=== PATIENT | male | born 1995 | race African-American/Black ===

== ENCOUNTER 2017-07-01 | Emergency (ER) | payer OTHER ==
--- NOTE | 2017-07-01 20:56 | ER Document Report ---
ED General - General Chief Complaint: Laceration Stated Complaint: LEFT THUMB LACERATION Time Seen by Provider: 07/01/17 20:46 TRAVEL OUTSIDE OF THE [place] IN LAST 30 DAYS: No - HPI Notes: 22-year-old male [id number] presents with left thumb laceration. Patient was using a clean pocketknife and he actually slipped and cut the pad of his thumb. He sustained a 1 cm laceration to the medial volar aspect. Bleeding was controlled at home. Minimal blood loss. Burning sharp pain, nonradiating, sudden onset. Tetanus up-to-date. No other modifying factors, no other associated symptoms, no other provocative or palliative factors. Past Medical History - Social History Smoking Status: Never Smoker Family History: Reviewed & Not Pertinent Patient has suicidal ideation: No Patient has homicidal ideation: No - Past Medical History Cardiac Medical History: Reports: None Renal/ Medical History: Denies: Hx Peritoneal Dialysis Review of Systems - Review of Systems Notes: Review of systems as in history of present illness, otherwise no significant headache, chest pain, abdominal pain. Physical Exam - Vital signs Vitals: Temp Pulse Resp BP Pulse Ox 98.7 F 70 18 153/87 H 96 07/01/17 20:19 07/01/17 20:19 07/01/17 20:19 07/01/17 20:19 07/01/17 20:19 - Notes Notes: General: Well devloped, no acute distress. HEENT: Normocephalic, atraumatic. Pupils equal round reactive to light. Mucosa moist. No JVD. Chest: No trauma, normal excursion. Respiratory: Good air exchange, normal excursion. Cardiac: Regular rhythm Abdomen: Soft, benign. Nondistended. Back: No asymmetry or gross abnormality. Motor: Grossly normal power and tone. Neurologic: Alert, nonfocal. Vascular: Well perfused Skin: No petechiae or purpura Extremities: 1 cm slightly gaping laceration noted to the volar medial thumb, curvilinear nature Course - Re-evaluation Re-evalutation: Well-appearing male with laceration, repaired as described below. No complications. Procedure note: Anesthesia was not required. After irrigation and cleansing, wound is explored, I am able to visualize the depth of the wound, no evidence of foreign body, tendon, nerve or vascular injury. Wound is then closed using multiple layers of tissue adhesive, there is good tissue approximation cosmesis , no complications. There is a total of 1 cm closure - Vital Signs Vital signs: Temp Pulse Resp BP Pulse Ox 98.7 F 70 18 153/87 H 96 07/01/17 20:19 07/01/17 20:19 07/01/17 20:19 07/01/17 20:19 07/01/17 20:19 Discharge - Discharge Clinical Impression: Thumb laceration Qualifiers: Encounter type: initial encounter Damage to nail status: without damage Foreign body presence: without foreign body Laterality: left Qualified Code(s): S61.012A - Laceration without foreign body of left thumb without damage to nail , initial encounter Condition: Good Disposition: HOME, SELF-CARE Instructions: Laceration Care ([facility])
== END 2017-07-01 21:03 | disposition home or self-care (01) ==
PROC: 0HQGXZZ Repair Left Hand Skin, External Approach (ICD-10-PCS; principal; 2017-07-01)
CPT/HCPCS: 99282

== ENCOUNTER 2018-09-09 15:17 | Emergency (ER) | payer OTHER ==
[2018-09-09 15:36] VITALS: BP 141/80
[2018-09-09] MEDS ORDERED: PENICILLIN G BENZATHINE 1.2 MILLION UNIT/2 ML DISP.SYRIN IM ONE (16:04)
[2018-09-09] MEDS ORDERED: LIDOCAINE 1% INJ-PF (10 MG/ML) 30 ML SDV NEB ONE (16:04)
[2018-09-09] MEDS ORDERED: CEFTRIAXONE INJ 250 MG VIAL IM ONE (16:04)
[2018-09-09] MEDS ORDERED: AZITHROMYCIN 250 MG TABLET PO ONE (16:04)
--- NOTE | 2018-09-09 16:07 | ER Document Report ---
HPI - HPI Time Seen by Provider: 09/09/18 16:02 Pain Level: Denies Notes: Patient is a 23-year-old male with no significant past medical history aside from psoriasis who presents for testing and treatment for STD exposure to chlamydia, gonorrhea, trichomonas. Patient states that he has had a rash to his palms and soles for the past 2 weeks that do not hurt or itch. He is eating and drinking without difficulty. He is urinating normally without noted discharge and having normal bowel movements. Denies any headache, fever, URI, sore throat, chest pain, palpitations, syncope, cough, shortness of breath, wheeze, dyspnea, abdominal pain, nausea/vomiting/diarrhea, urinary retention, dysuria, hematuria. - ROS Systems Reviewed and Negative: Yes All other systems reviewed and negative - DERM Skin Color: Normal Past Medical History - Social History Smoking Status: Current Every Day Smoker Frequency of alcohol use: None Drug Abuse: None Family History: Reviewed & Not Pertinent Patient has suicidal ideation: No Patient has homicidal ideation: No Renal/ Medical History: Denies: Hx Peritoneal Dialysis Vertical Provider Document - CONSTITUTIONAL Agree With Documented VS: Yes Notes: PHYSICAL EXAMINATION: GENERAL: Well-appearing, well-nourished and in no acute distress. HEAD: Atraumatic, normocephalic. EYES: Pupils equal round and reactive to light, extraocular movements intact, sclera anicteric, conjunctiva are normal. ENT: Nares patent and without discharge. oropharynx clear without exudates. No tonsilar hypertrophy or erythema. Moist mucous membranes. No sinus tenderness. No oral mucosa lesion/rash. NECK: Normal range of motion, supple without lymphadenopathy LUNGS: Breath sounds clear to auscultation bilaterally and equal. No wheezes rales or rhonchi. HEART: Regular rate and rhythm without murmurs, rubs, gallops. ABDOMEN: Soft, nontender, nondistended abdomen. No guarding, no rebound. No masses appreciated. Normal bowel sounds present. No CVA tenderness bilaterally. : + circumcised. No urethral discharge, lymphadenopathy, or hernia noted. Psoriasis rash noted without evidence of pustules, cankers, or other ulcerations. No significant erythema or swelling to the genitals. No testicular tenderness. Musculoskeletal: FROM to passive/active. Strength 5+/5. Extremities: No cyanosis, clubbing, or edema b/l. Peripheral pulses 2+. Capillary refill less than 3 seconds. NEUROLOGICAL: Cranial nerves grossly intact. Normal speech, normal gait. Normal sensory, motor exams PSYCH: Normal mood, normal affect. SKIN: There is a maculopapular dry, rough rash to the palms and soles bilaterally. - INFECTION CONTROL TRAVEL OUTSIDE OF THE [place] IN LAST 30 DAYS: No Course - Re-evaluation Re-evalutation: 09/09/18 Patient is an afebrile, well-hydrated, 23-year-old male who presents with a rash to his palms and soles and exposure to STDs. The rash could be related with his psoriasis, but does resemble a syphilis type rash. Vitals are acceptable without significant tachycardia, tachypnea, or hypoxia. PE is otherwise unremarkable. Patient given Zithromax, Rocephin, and penicillin. RPR, chlamydia/gonorrhea are pending. Urinalysis otherwise unremarkable. No further work-up warranted. Patient's abdomen is soft nontender. He is nontoxic- appearing is able to tolerate p.o. without difficulty. Low suspicion for any necrotizing fasciitis, SJS, SSS, drug reaction, sepsis, meningitis, Lyme disease, [place] spotted fever, testicular torsion, or other systemic emergent condition at this time. Patient aware that condition can change from initial presentation and he needs to monitor symptoms closely and seek medical attention with any acute changes. Recheck with your PCM in 3-5 days. Go to the health department this week for further evaluation. Return to the ED with any other worsening/concerning symptoms as reviewed. Patient is in agreement. - Vital Signs Vital signs: Temp Pulse Resp BP Pulse Ox 98.5 F 85 16 141/80 H 100 09/09/18 15:31 09/09/18 15:31 09/09/18 15:31 09/09/18 15:31 09/09/18 15:31 Discharge - Discharge Clinical Impression: Exposure to STD Condition: Stable Disposition: HOME, SELF-CARE Instructions: Metronidazole ([facility]) Additional Instructions: Maintain fluid intake Proper hygienic technique Keep the skin clean Safe sexual practices with condoms everytime Tylenol/ibuprofen as needed Check in with the health department this week for further testing as you may need continued syphilis testing Your chlamydia/gonorrhea tests are pending and you will be notified if positive results; you may call in 1 day for the results as well F/u with your PCM in 3-5 days for a recheck Return to the ED with any development of OH/fever, trouble with vision, eye redness, worsening pain, urethral discharge, urinary retention, blood in the urine, flank pain, abdominal pain, n/v, Chest Pain, shortness of breath, joint pains, trouble breathing, or any other worsening/concerning symptoms as needed otherwise. Prescriptions: Metronidazole [Flagyl] 500 mg PO BID #14 tablet Forms: Elevated Blood Pressure, Smoking Cessation Education [facility] - Follow up in 3-5 days
[2018-09-09 16:48] LABS: APPEARANCE,URINE CLEAR; BILIRUBIN,URINE NEGATIVE (NEGATIVE); COLOR,URINE YELLOW; GLUCOSE, URINE NEGATIVE (NEGATIVE); KETONES,URINE NEGATIVE (NEGATIVE); LEUKOCYTE ESTERASE,URINE NEGATIVE (NEGATIVE); NITRITE,URINE NEGATIVE (NEGATIVE); PROTEIN,URINE NEGATIVE (NEGATIVE)
[2018-09-09 18:20] LABS: CHLAM PCR NOT DETECTED (NOT DETECT)
== END 2018-09-09 17:45 | disposition home or self-care (01) ==
LOC: ER 15:17
DX: Z20.2 Contact with and (suspected) exposure to infections with a predominantly sexual mode of transmission (principal); R21 Rash and other nonspecific skin eruption; F17.200 Nicotine dependence, unspecified, uncomplicated
CPT/HCPCS: 99283; 96372; 36415; 87086; 86592; 81001; 87491; 87591; J3490; J0561; J0696

== ENCOUNTER 2018-09-09 23:42 | Emergency (ER) | payer OTHER ==
--- NOTE | 2018-09-10 01:20 | RADIOLOGY REPORT (SQ) ---
EXAM DESCRIPTION: XR FOOT 3 OR MORE VIEWS COMPLETED DATE/TME: 09/09/2018 23:44 CLINICAL HISTORY: 23 years, Male, pain COMPARISON: None. FINDINGS: 3 views of the right foot. No acute fracture or dislocation. Normal osseous mineralization. No radiopaque foreign bodies. IMPRESSION: No acute fracture or dislocation. copyright 2010 [employer]- All Rights Reserved
[2018-09-10 01:44] VITALS: BP 133/82
--- NOTE | 2018-09-10 01:45 | ER Document Report ---
HPI - HPI Patient complains to provider of: rash Time Seen by Provider: 09/10/18 01:38 Pain Level: 2 Context: RME note from earlier visit today: Patient is a 23-year-old male with no significant past medical history aside from psoriasis who presents for testing and treatment for STD exposure to chlamydia, gonorrhea, trichomonas. Patient states that he has had a rash to his palms and soles for the past 2 weeks that do not hurt or itch. He is eating and drinking without difficulty. He is urinating normally without noted discharge and having normal bowel movements. Denies any headache, fever, URI, sore throat, chest pain, palpitations, syncope, cough, shortness of breath, wheeze, dyspnea, abdominal pain, nausea/vomiting/diarrhea, urinary retention, dysuria, hematuria. MY HPI: Pt. returns to the ED because "one of the lesions on my right foot hurts." Patient states he was itching his right bottom foot when part of his skin "peeled off." Patient states that hurts which is why he presents to the emergency room. Patient is denying any bleeding or any other injuries. Past Medical History - Social History Smoking Status: Never Smoker Chew tobacco use (# tins/day): No Frequency of alcohol use: None Drug Abuse: None Family History: Reviewed & Not Pertinent Patient has suicidal ideation: No Patient has homicidal ideation: No Renal/ Medical History: Denies: Hx Peritoneal Dialysis Vertical Provider Document - CONSTITUTIONAL Agree With Documented VS: Yes Notes: GENERAL: Alert, interacts well. No acute distress. HEAD: Normocephalic, atraumatic. EYES: Pupils equal, round, and reactive to light. Extraocular movements intact. ENT: Oral mucosa moist, tongue midline. NECK: Full range of motion. Supple. Trachea midline. LUNGS: Clear to auscultation bilaterally, no wheezes, rales, or rhonchi. No respiratory distress. HEART: Regular rate and rhythm. No murmur ABDOMEN: Soft, non-tender. Non-distended. Bowel sounds present in all 4 quadrants. EXTREMITIES: Moves all 4 extremities spontaneously. No edema, normal radial and dorsalis pedis pulses bilaterally. No cyanosis. BACK: no cervical, thoracic, lumbar midline tenderness. No saddle anesthesia, normal distal neurovascular exam. NEUROLOGICAL: Alert and oriented x3. Normal speech. cranial nerves II through XII grossly intact. PSYCH: Normal affect, normal mood. SKIN: Warm, dry, normal turgor. maculopapular dry, rough rash to the palms and soles bilaterally. - INFECTION CONTROL TRAVEL OUTSIDE OF THE [place] IN LAST 30 DAYS: No Course - Re-evaluation Re-evalutation: Foot XR was ordered by knit goods mender prior to my examination of the Pt. 09/10/18 01:44 Patient is an afebrile, well-hydrated, 23-year-old male who presents with a rash to his palms and soles and exposure to STDs. The rash could be related with his psoriasis, but does resemble a syphilis type rash. Vitals are acceptable without significant tachycardia, tachypnea, or hypoxia. PE is otherwise unremarkable. Patient was given Zithromax, Rocephin, and penicillin at his earlier visit. RPR is pending. No further work-up warranted. Patient's abdomen is soft nontender. He is nontoxic-appearing is able to tolerate p.o. without difficulty. Low suspicion for any necrotizing fasciitis, SJS, SSS, drug reaction, sepsis, meningitis, Lyme disease, [place] spotted fever, or other systemic emergent condition at this time. Patient aware that condition can change from initial presentation and he needs to monitor symptoms closely and seek medical attention with any acute changes. Recheck with your PCM in 3-5 days. Go to the health department this week for further evaluation. Return to the ED with any other worsening/concerning symptoms as reviewed. Patient is in agreement. - Vital Signs Vital signs: Temp Pulse Resp BP Pulse Ox 98.0 F 84 16 133/82 H 100 09/10/18 01:43 09/10/18 01:43 09/10/18 01:43 09/10/18 01:43 09/10/18 01:43 Discharge - Discharge Clinical Impression: Rash Condition: Stable Disposition: HOME, SELF-CARE Additional Instructions: As we discussed the rash on your hands and feet could be due to your eczema or psoriasis. It could also be due to an infection called syphilis. You have already been treated for this infection and unfortunately your test results are still pending. Please make sure you follow-up with your primary care provider or the health district for continued care of the symptoms. Please also return to the emergency room for any concerns. Referrals: [facility] [NO LOCAL MD] - Follow up as needed
== END 2018-09-10 01:43 | disposition home or self-care (01) ==
LOC: ER 23:42
DX: R21 Rash and other nonspecific skin eruption (principal)
CPT/HCPCS: 99283

== ENCOUNTER 2018-12-03 19:37 | Emergency (ER) | payer OTHER ==
[2018-12-03] MEDS ORDERED: LIDOCAINE 1% INJ-PF (10 MG/ML) 30 ML SDV INJ ONE (19:50)
[2018-12-03] MEDS ORDERED: CEFTRIAXONE INJ 250 MG VIAL IM ONE (19:50)
[2018-12-03] MEDS ORDERED: AZITHROMYCIN 250 MG TABLET PO ONE (19:50)
--- NOTE | 2018-12-03 19:53 | ER Document Report ---
HPI - HPI Patient complains to provider of: Penile discharge Time Seen by Provider: 12/03/18 19:42 Onset: Last week Onset/Duration: Sudden Quality of pain: No pain Pain Level: Denies Context: 23-year-old male presents emergency department with complaints of penile discharge for the past week and a half. He denies testicular pain. He denies pain with void. He denies fever vomiting diarrhea. Reports his partner that he had sex with, unprotected, a week and a half ago contacted him to advise him she was positive for chlamydia. Patient would like to be treated for the STD. Associated Symptoms: None Exacerbated by: Denies Relieved by: Denies Similar symptoms previously: No Recently seen / treated by doctor: No - CONSTITUTIONAL Constitutional: DENIES: Fever, Chills - URINARY Urinary: DENIES: Dysuria Past Medical History - General Information source: Patient - Social History Smoking Status: Current Every Day Smoker Cigarette use (# per day): Yes - Vapes Frequency of alcohol use: Occasional Drug Abuse: None Family History: Reviewed & Not Pertinent Patient has suicidal ideation: No Patient has homicidal ideation: No - Medical History Medical History: Negative Renal/ Medical History: Denies: Hx Peritoneal Dialysis Surgical Hx: Negative Vertical Provider Document - CONSTITUTIONAL Agree With Documented VS: Yes Exam Limitations: No Limitations General Appearance: WD/WN, No Apparent Distress - INFECTION CONTROL TRAVEL OUTSIDE OF THE [place] IN LAST 30 DAYS: No - HEENT HEENT: Atraumatic, Normocephalic - NECK Neck: Normal Inspection, Supple - RESPIRATORY Respiratory: Breath Sounds Normal, No Respiratory Distress - CARDIOVASCULAR Cardiovascular: Regular Rate - GI/ABDOMEN Gastrointestinal: Abdomen Soft, Abdomen Non-Tender - MUSCULOSKELETAL/EXTREMETIES Musculoskeletal/Extremeties: MAEW, FROM - NEURO Level of Consciousness: Awake, Alert, Appropriate Motor/Sensory: No Motor Deficit - DERM Integumentary: Warm, Dry Course - Re-evaluation Re-evalutation: 12/03/18 20:14 The patient did not want to wait for the results. Patient was instructed on the importance of using protection while having sexual relations. He was also instructed he can call the culture nurse for his results. He was instructed on medications. He verbalized understanding to all instructions. Dictation of this chart was performed using voice recognition software; therefore, there may be some unintended grammatical errors. Discharge - Discharge Clinical Impression: Penile discharge, Exposure to STD Condition: Stable Disposition: HOME, SELF-CARE Instructions: Azithromycin ([facility]), Chlamydia ([facility]), Gonorrhea ([facility]), [facility], Rocephin ([facility]) Additional Instructions: *You have been evaluated for penile discharge, STD exposure *You have been treated with Rocephin and Zithromax which covers gonorrhea and chlamydia *You may contact the culture nurse at [phone] Sunday through Sunday from 8 AM to 1600 for your STD results *Follow up with the health department for recheck within 1 week *Always use protection during sexual intercourse Avoid sexual intercourse until follow up *Return to ED for worsening condition, changes, needs [facility]errals: [facility] [Primary [facility]] - Follow up in 1 week
[2018-12-03 20:26] LABS: APPEARANCE,URINE CLEAR; BILIRUBIN,URINE NEGATIVE (NEGATIVE); COLOR,URINE YELLOW; GLUCOSE, URINE NEGATIVE (NEGATIVE); KETONES,URINE TRACE mg/dL (NEGATIVE); LEUKOCYTE ESTERASE,URINE NEGATIVE (NEGATIVE); NITRITE,URINE NEGATIVE (NEGATIVE); PROTEIN,URINE NEGATIVE (NEGATIVE); URINE SPECIFIC GRAVITY 1.026
[2018-12-03 21:50] LABS: CHLAM PCR NOT DETECTED (NOT DETECT)
== END 2018-12-03 20:21 | disposition home or self-care (01) ==
LOC: ER 19:37
DX: R36.9 Urethral discharge, unspecified (principal); F17.290 Nicotine dependence, other tobacco product, uncomplicated; Z20.2 Contact with and (suspected) exposure to infections with a predominantly sexual mode of transmission
CPT/HCPCS: 99283; 96374; 96375; 81001; 87491; 87591; J3490; J0696

== ENCOUNTER 2019-01-24 09:48 | Emergency (ER) | payer OTHER ==
[2019-01-24 09:53] VITALS: BP 148/89
[2019-01-24] MEDS ORDERED: AZITHROMYCIN 250 MG TABLET PO ONE (11:11)
[2019-01-24] MEDS ORDERED: CEFTRIAXONE INJ 250 MG VIAL IM ONE (11:11)
[2019-01-24] MEDS ORDERED: LIDOCAINE 1% INJ (10 MG/ML) 10 ML MDV INJ ONE (11:12)
--- NOTE | 2019-01-24 11:18 | ER Document Report ---
HPI - HPI Patient complains to provider of: penile discharge Time Seen by Provider: 01/24/19 11:05 Pain Level: Denies Context: 23-year-old generally healthy male presents the emergency department with penile discharge for the last 3 days. Patient states that he had a sexual contact last week with a random female and does not know her sexual history. He states that all was well until a few days ago when he noted a milky white discharge coming from his penis, painless, and intermittent. He said it was not copious. He said he currently does not have it. Denies fevers or chills, denies rash, denies testicular pain, denies redness or swelling of his testicles, denies any other symptoms. - REPRODUCTIVE Reproductive: DENIES: : Past Medical History - Social History Smoking Status: Never Smoker Frequency of alcohol use: None Drug Abuse: None Family History: Reviewed & Not Pertinent Patient has suicidal ideation: No Patient has homicidal ideation: No Renal/ Medical History: Denies: Hx Peritoneal Dialysis Vertical Provider Document - CONSTITUTIONAL Notes: PHYSICAL EXAMINATION: Reviewed vital signs and charting by RN GENERAL: Alert, interacts well. No acute distress. HEAD: Normocephalic, atraumatic. EYES: Pupils equal and round. Extraocular movements intact. ENT: Oral mucosa moist, tongue midline. NECK: Full range of motion. Trachea midline. : Testicles both vertical lying, no rash or lesions, no erythema or swelling bilateral testicles, meatus without lesions, no discharge seen, no lesions on the shaft of the penis, no pain to palpation. EXTREMITIES: Moves all 4 extremities spontaneously. No edema, No cyanosis. PSYCH: Normal affect, normal mood. SKIN: Warm, dry, normal turgor. No rashes or lesions noted. - INFECTION CONTROL TRAVEL OUTSIDE OF THE [place] IN LAST 30 DAYS: No Course - Re-evaluation Re-evalutation: 01/24/19 11:15 Well-appearing in no acute distress. Patient with a high risk sexual contact. We will treat prophylactically for gonorrhea and chlamydia. Patient previously tested positive for gonorrhea and was treated per patient in November 2018. Patient previously had a negative RPR and he has no symptoms of rash or painless chancre of the penis. Patient will receive a azithromycin 1000 mg p.o. and ceftriaxone 250 mg IM once here in the emergency department. Urine has been obtained. 01/24/19 11:36 Patient wishes to leave and requests a call if any of the results are positive. Strict return precautions given. Stable for discharge. - Vital Signs Vital signs: Temp Pulse Resp BP Pulse Ox 98.6 F 79 20 148/89 H 98 01/24/19 09:53 01/24/19 09:53 01/24/19 09:53 01/24/19 09:53 01/24/19 09:53 Discharge - Discharge Clinical Impression: Possible exposure to STD Condition: Good Disposition: HOME, SELF-CARE Additional Instructions: You were seen in the emergency department for penile discharge. You have been treated with antibiotics prophylactically for chlamydia and gonorrhea. If these results are positive you will receive a phone call but again be advised that you have been treated successfully for them. If they are negative you do not receive a phone call and you should feel no adverse effects from these medications. Return to the emergency department if you develop worsening symptoms, severe penile pain, swelling of the testicles, inability to urinate. Forms: Return to Work Referrals: [facility] [Primary Care Provider] - Follow up as needed
== END 2019-01-24 11:41 | disposition home or self-care (01) ==
LOC: ER 09:48
DX: Z20.2 Contact with and (suspected) exposure to infections with a predominantly sexual mode of transmission (principal); R36.9 Urethral discharge, unspecified
CPT/HCPCS: 99283; 96372; J0696

== ENCOUNTER 2019-02-21 23:02 | Emergency (ER) | payer OTHER ==
--- NOTE | 2019-02-22 01:02 | ER Document Report ---
ED General - General Chief Complaint: Abscess Stated Complaint: RIGHT ARM PAIN Time Seen by Provider: 02/22/19 01:01 Primary Care Provider: [facility] [Primary Care Provider] - Follow up as needed Mode of Arrival: Ambulatory Information source: Patient TRAVEL OUTSIDE OF THE [place] IN LAST 30 DAYS: No - HPI Onset: Last week Onset/Duration: Gradual Quality of pain: Pressure, Throbbing Severity: Moderate Pain Level: 3 Context: patient is unclear how the infected area started on his arm Associated symptoms: Other - right arm swelling, redness, warmth, and tenderness. Exacerbated by: Movement Relieved by: Denies Similar symptoms previously: No Recently seen / treated by doctor: No Notes: 23 year old male with no known PMH here for a painful, swollen red area on his right forearm (extensor surface) for the last week. The patient denies trauma to the area. The patient says scant pus has drained from the area. The patient denies systemic symptoms like fevers, chills, sweats, nausea, vomiting. - Related Data Allergies/Adverse Reactions: No Known Allergies Allergy (Verified 02/21/19 23:03) Past Medical History - General Information source: Patient - Social History Smoking Status: Never Smoker - but he vapes. Frequency of alcohol use: Social Drug Abuse: None Lives with: Alone Family History: Reviewed & Not Pertinent Patient has suicidal ideation: No Patient has homicidal ideation: No - Medical History Medical History: Negative - Past Medical History Cardiac Medical History: Reports: None Pulmonary Medical History: Reports: None EENT Medical History: Reports: None Neurological Medical History: Reports: None Endocrine Medical History: Reports: None Renal/ Medical History: Reports: None. Denies: Hx Peritoneal Dialysis Malignancy Medical History: Reports None GI Medical History: Reports: None Musculoskeletal Medical History: Reports None Skin Medical History: Reports None Traumatic Medical History: Reports: None Infectious Medical History: Reports: None Surgical Hx: Negative Review of Systems - Review of Systems Constitutional: No symptoms reported EENT: No symptoms reported Cardiovascular: No symptoms reported Respiratory: No symptoms reported Gastrointestinal: No symptoms reported Genitourinary: No symptoms reported Male Genitourinary: No symptoms reported Musculoskeletal: No symptoms reported Skin: Other - right forearm pain, swelling, redness, warmth and minor pus drainage from area in question Hematologic/Lymphatic: No symptoms reported Neurological/Psychological: No symptoms reported Physical Exam - Vital signs Vitals: Temp Pulse Resp BP Pulse Ox 98.5 F 87 16 140/94 H 100 02/21/19 23:20 02/21/19 23:20 02/21/19 23:20 02/21/19 23:20 02/21/19 23:20 - Notes Notes: GENERAL: Well-appearing, well-nourished and in no acute distress. HEAD: Atraumatic, normocephalic. EYES: Pupils equal round and reactive to light, extraocular movements intact, sclera anicteric, conjunctiva are normal. ENT: Nares patent, oropharynx clear without exudates. Moist mucous membranes. NECK: Normal range of motion, supple without lymphadenopathy or JVD. LUNGS: Breath sounds clear to auscultation bilaterally and equal. No wheezes rales or rhonchi. HEART: Regular rate and rhythm without murmurs, rubs or gallops. ABDOMEN: Soft, nontender, normoactive bowel sounds. No guarding, no rebound. No masses appreciated. EXTREMITIES: Normal range of motion, no pitting or edema. No clubbing or cyanosis. NEUROLOGICAL: Cranial nerves II through XII grossly intact. Normal speech, normal gait. PSYCH: Normal mood, normal affect. SKIN: Warm, Dry, normal turgor, no rashes or lesions noted. Right forearm has an abscess with surrounding cellulitis (diameter of affected area is about 4cm) Course - Re-evaluation Re-evalutation: 02/22/19 05:32 The patient has a right arm abscess and cellulitis. I performed an I&D at the bedside and then packed the area. The patient was started on Clindamycin and wound care instructions were given. Patient told to have packing removed in 3 days. - Vital Signs Vital signs: Temp Pulse Resp BP Pulse Ox 97.3 F 86 19 144/86 H 98 02/22/19 01:59 02/22/19 01:59 02/22/19 01:59 02/22/19 01:59 02/22/19 01:59 Procedures - Incision and Drainage Right Lower Arm Type: Simple, Single Anesthetic type: 1% Lidocaine w/epi mL's of anesthetic: 5 Blade size: 11 I&D procedure: Chlorprep applied, Iodoform packing placed Incision Method: Incision made by scalpel Amount/type of drainage: mild amount of purulant Discharge - Discharge Clinical Impression: Abscess of arm, right Condition: Stable Disposition: HOME, SELF-CARE Instructions: Abscess ([facility]) Additional Instructions: Remove the packing in 3 days if it has not fallen out on its own. Take antibiotics as prescribed. Have your wound/skin infection checked in 5-7 days if you do not think it is healing well. Return to an ER if worse. Use Tylenol and Motrin for pain. Prescriptions: Clindamycin HCl [Cleocin HCl] 450 mg PO TID 7 Days #63 capsule Referrals: [facility] [Primary Care Provider] - Follow up as needed
[2019-02-22] MEDS ORDERED: LIDOCAINE 1%/EPINEPHRINE INJ 20 ML VIAL INJ ONE (01:13)
[2019-02-22] MEDS ORDERED: CLINDAMYCIN HCL 150 MG CAPSULE PO ONE (01:44)
[2019-02-22 02:00] VITALS: BP 144/86
== END 2019-02-22 02:06 | disposition home or self-care (01) ==
LOC: ER 23:02
DX: L02.413 Cutaneous abscess of right upper limb (principal)
CPT/HCPCS: 99283; 10060; A6266; J3490

== ENCOUNTER 2019-02-22 18:16 | Emergency (ER) | payer OTHER ==
[2019-02-22] MEDS ORDERED: KETOROLAC TROMETHAMINE INJ/PF 30 MG/1 ML SDV IV ONE (19:14)
--- NOTE | 2019-02-22 19:17 | ER Document Report ---
ED Medical Screen (RME) - General Chief Complaint: Wound Recheck Stated Complaint: SKIN ISSUE Time Seen by Provider: 02/22/19 19:10 Primary Care Provider: AGGIE BERMUDEZ [Primary Care Provider] - Follow up as needed Notes: Patient is a 23-year-old male who presents the emergency department with a chief complaint of right arm redness and swelling. Patient reports he was seen here yesterday and diagnosed with an abscess that did require incision and drainage. Patient reports this is located to the extensor surface of his right arm. Patient reports he has been on his antibiotics with his last dose of clindamycin being 5 PM. Patient denies fever. Patient states increased swelling and pain streaking up his arm. TRAVEL OUTSIDE OF THE [place] IN LAST 30 DAYS: No - Related Data Allergies/Adverse Reactions: No Known Allergies Allergy (Verified 02/22/19 19:04) Past Medical History - Social History Chew tobacco use (# tins/day): No Frequency of alcohol use: None Drug Abuse: None Renal/ Medical History: Denies: Hx Peritoneal Dialysis Physical Exam - Vital signs Vitals: Pulse BP 87 140/94 H 02/21/19 23:21 02/21/19 23:21 - Extremities Notes: Patient has redness and edema noted to the right lower arm. There is no significant drainage noted from the abscess that was incised yesterday. Packing noted. Course - Re-evaluation Re-evalutation: 02/22/19 19:17 I have greeted and performed a rapid initial assessment of this patient. A comprehensive ED assessment and evaluation of the patient, analysis of test results and completion of the medical decision making process will be conducted by additional ED providers. - Vital Signs Vital signs: Temp Pulse Resp BP Pulse Ox 99.9 F 87 19 140/94 H 98 02/22/19 19:04 02/22/19 19:04 02/22/19 01:59 02/22/19 19:04 02/22/19 19:04 Doctor's Discharge - Discharge Referrals: AGGIE BERMUDEZ [Primary Care Provider] - Follow up as needed
[2019-02-22 19:42] LABS: ABSOLUTE BASOPHILS # (AUTO) 0.1 10^3/uL (0.0-0.2); ABSOLUTE NEUT (AUTO) 6.7 10^3/uL (1.7-8.2); BASOPHILS % (AUTO) 0.6 % (0-2); HEMOGLOBIN 14.7 g/dL (13.5-17.0); MEAN CORPUSCULAR HGB CONC 33.5 g/dL (32.0-36.0); TOTAL CELLS COUNTED % (AUTO) 100 %
[2019-02-22 19:56] LABS: ABSOLUTE EOSINOPHILS # (AUTO) 0.2 10^3/uL (0.0-0.6); ABSOLUTE LYMPHOCYTES (AUTO) 2.3 10^3/uL (0.5-4.7); ABSOLUTE MONOCYTES (AUTO) 1.1 10^3/uL (0.1-1.4); EOSINOPHILS % (AUTO) 2.3 % (0-6); HEMATOCRIT 43.9 % (37.9-51.0); LYMPHOCYTES % (AUTO) 22.2 % (13-45); MEAN CORPUSCULAR VOLUME 80 fl (80-97); MONOCYTES % (AUTO) 10.3 % (3-13); PLATELET COUNT 247 10^3/uL (150-450); RED BLOOD COUNT 5.46 10^6/uL (4.35-5.55); RED CELL DISTRIBUTION WIDTH 14.1 % (11.5-14.0); SEGMENTED NEUTROPHILS % (AUTO) 64.6 % (42-78); WHITE BLOOD COUNT 10.4 10^3/uL (4.0-10.5)
[2019-02-22 19:57] LABS: ALBUMIN 4.9 g/dL (3.5-5.0); ALKALINE PHOSPHATASE 52 U/L (38-126); ANION GAP 13 (5-19); ASPARTATE AMINO TRANSFERASE 22 U/L (17-59); BILIRUBIN,DIRECT 0.1 mg/dL (0.0-0.4); BILIRUBIN,TOTAL 0.9 mg/dL (0.2-1.3); BLOOD UREA NITROGEN 16 mg/dL (7-20); CARBON DIOXIDE 28 mmol/L (22-30); CHLORIDE 101 mmol/L (98-107); GLUCOSE 116 mg/dL (75-110); TOTAL PROTEIN 8.4 g/dL (6.3-8.2)
[2019-02-22] MEDS ORDERED: SULFAMETHOXAZOLE/TRIMETHOPRIM 800-160 MG TABLET PO ONE (20:46)
[2019-02-22] MEDS ORDERED: CEFTRIAXONE 1 GM/D5W RTU 1 GM/50 ML RTUPB IV ONE (20:46)
--- NOTE | 2019-02-22 20:48 | ER Document Report ---
ED Extremity Problem, Upper - General Chief Complaint: Wound Recheck Stated Complaint: SKIN ISSUE Time Seen by Provider: 02/22/19 19:10 Primary Care Provider: AGGIE BERMUDEZ [Primary Care Provider] - Follow up in 3-5 days Notes: Patient is a 23-year-old male that comes emergency department for chief complaint of an infection in his right forearm. Patient states that he was seen here yesterday for an abscess, this was drained, he states that afterwards he went home, he woke up this morning and the swelling in the right forearm was actually reduced, however this afternoon and evening it started worsening and now he has spreading redness up his arm towards the mid forearm. The abscess drained location is over the extensor surface of the proximal right forearm. Patient denies history of abscesses, history of MRSA, he has no diagnosed medical history. He is up-to-date on tetanus. He denies ever using IV drugs. Patient states his pain is well controlled with the Toradol he received from triage. TRAVEL OUTSIDE OF THE [place] IN LAST 30 DAYS: No - Related Data Allergies/Adverse Reactions: No Known Allergies Allergy (Verified 02/22/19 19:04) Past Medical History - General Information source: Patient - Social History Smoking Status: Never Smoker Chew tobacco use (# tins/day): No Frequency of alcohol use: None Drug Abuse: None Family History: Reviewed & Not Pertinent Patient has suicidal ideation: No Patient has homicidal ideation: No Renal/ Medical History: Denies: Hx Peritoneal Dialysis Review of Systems - Review of Systems Constitutional: No symptoms reported EENT: No symptoms reported Cardiovascular: No symptoms reported Respiratory: No symptoms reported Gastrointestinal: No symptoms reported Genitourinary: No symptoms reported Male Genitourinary: No symptoms reported Musculoskeletal: See HPI Skin: See HPI Hematologic/Lymphatic: No symptoms reported Neurological/Psychological: No symptoms reported Physical Exam - Vital signs Vitals: Pulse BP 87 140/94 H 02/21/19 23:21 02/21/19 23:21 - Notes Notes: GENERAL: Alert, interacts well. No acute distress. HEAD: Normocephalic, atraumatic. EYES: Pupils equal, round, and reactive to light. Extraocular movements intact. ENT: Oral mucosa moist, tongue midline. Oropharynx unremarkable. Airway patent. LUNGS: Clear to auscultation bilaterally, no wheezes, rales, or rhonchi. No respiratory distress. HEART: Regular rate and rhythm. No murmur ABDOMEN: Soft, non-tender. Non-distended. EXTREMITIES: Right forearm swelling proximally with a lateral/extensor surface area packed with iodoform. Surrounding this there is erythema extending up to the mid forearm. Normal range of motion of the elbow, normal wrist exam, normal distal neurovascular exam. BACK: no cervical, thoracic, lumbar midline tenderness. No saddle anesthesia, normal distal neurovascular exam. Moves all extremities in full range of motion. NEUROLOGICAL: Alert and oriented x3. Normal speech. Cranial nerves II through XII grossly intact. PSYCH: Normal affect, normal mood. SKIN: Warm, dry, normal turgor. No rashes or lesions noted. Course - Re-evaluation Re-evalutation: Patient with what appears to be developing cellulitis despite clindamycin. There is no indurated area suggesting additional abscess but the area is slightly swollen. Laboratory work-up nonspecific. No fever. Patient is quite well-appearing. Pain resolved with just Toradol. I did discuss with Dr. Vazquez, she recommends ultrasound, she evaluated the patient at bedside, she recommends that if the ultrasound is negative for abscess that he can be changed to Bactrim and Keflex, have the area repacked, and has strict return precautions. Patient was given Rocephin and Bactrim here. Ultrasound showing just the area of incision and drainage with soft tissue swelling. No additional abscess. Suspect cellulitis only. Area was traced, marlena maddox discharged on antibiotics with return precautions. Patient states appreciation and agreement. - Vital Signs Vital signs: Temp Pulse Resp BP Pulse Ox 97.5 F 85 16 136/87 H 100 02/22/19 23:49 02/22/19 23:49 02/22/19 23:49 02/22/19 23:49 02/22/19 23:49 - Laboratory Result Diagrams: 02/22/19 19:30 02/22/19 19:30 Laboratory results interpreted by me: 02/22/19 02/22/19 19:30 19:30 RDW 14.1 H Glucose 116 H Total Protein 8.4 H Discharge - Discharge Clinical Impression: Cellulitis of right forearm Condition: Stable Disposition: HOME, SELF-CARE Additional Instructions: There does not appear to be an additional abscess from the previous one drained, the area is consistent with cellulitis. This is a skin infection. Stop the clindamycin, take the Bactrim and Keflex as prescribed. Keep area clean, clean gently with soap and water, you must remove the packing in the next 2 to 3 days if the packing does not fall out. Keep clean absorbent dressing over the area. Elevate your arm as much as possible. Follow-up with primary care for additional management. Return if you worsen including spreading outside of the marked lines, fever/chills, or any other concerning or worsening symptoms. Prescriptions: Sulfamethoxazole/Trimethoprim [Bactrim Ds Tablet] 1 each PO BID #14 tablet Cephalexin Monohydrate [Keflex 500 mg Capsule] 500 mg PO QID #28 capsule [facility]errals: [facility] [Primary Care [facility]] - Follow up in 3-5 days
--- NOTE | 2019-02-22 23:20 | RADIOLOGY REPORT (SQ) ---
EXAM DESCRIPTION: US EXTREMITY MUSCULOSKELETAL LIMITED COMPLETED DATE/TME: 02/22/2019 22:12 CLINICAL HISTORY: 23 years Male, right forearm swelling; additional abscess? Comparison: None. LIMITATIONS: None. FINDINGS: 0.6 x 0.3 x 0.4 cm skin based avascular hypoechoic defect-fluid measured "just below elbow "over described area of incision and drainage. Moderate diffuse edema. No abscess. IMPRESSION: 0.6 cm skin defect-minimal fluid in an area of described incision-drainage of the right forearm. Moderate edema. No abscess.
[2019-02-22] MEDS ORDERED: OXYCODONE-ACETAMINOPHEN 5-325 MG TABLET PO ONE (23:36)
[2019-02-22] MEDS ORDERED: PROMETHAZINE HCL 25 MG TABLET PO ONE (23:36)
[2019-02-22 23:50] VITALS: BP 136/87
== END 2019-02-22 23:50 | disposition home or self-care (01) ==
LOC: ER 18:16
DX: L03.113 Cellulitis of right upper limb (principal); L02.413 Cutaneous abscess of right upper limb
CPT/HCPCS: 99283; 96375; 96365; 36415; 87040; 85025; 80053; 76882; A6266; J1885; J0696

== ENCOUNTER 2020-02-16 19:49 | Emergency (ER) | payer OTHER ==
[2020-02-16 19:54] VITALS: BP 145/81
[2020-02-16] MEDS ORDERED: LIDOCAINE 1% INJ-PF (10 MG/ML) 30 ML SDV INJ ONE (20:25)
[2020-02-16] MEDS ORDERED: AZITHROMYCIN 250 MG TABLET PO ONE (20:25)
[2020-02-16] MEDS ORDERED: CEFTRIAXONE INJ 250 MG VIAL IM ONE (20:25)
--- NOTE | 2020-02-16 20:27 | ER Document Report ---
ED GI/ - General Chief Complaint: STD Exposure Stated Complaint: HERE WITH GF FOR STI POSITIVE Time Seen by Provider: 02/16/20 20:23 Primary Care Provider: [facility],AGGIE [Primary Care Provider] - Follow up as needed Mode of Arrival: Ambulatory Information source: Patient Notes: 24-year-old male presented to ED for STD evaluation. His girlfriend was here for positive chlamydia. He states he would like to be tested and treated. He has been treated with azithromycin and Rocephin. His urine is negative. We will not wait for the GC chlamydia as I am already treating him. Constitutional: Negative for fever. HENT: Negative for sore throat. Eyes: Negative for visual changes. Cardiovascular: Negative for chest pain. Respiratory: Negative for shortness of breath. Gastrointestinal: Negative for abdominal pain, vomiting or diarrhea. Genitourinary: Patient states he is not having any symptoms. He is here because his girlfriend is positive for chlamydia and he wanted to be tested and treated as he knows he has been exposed. Musculoskeletal: Negative for back pain. Skin: Negative for rash. Neurological: Negative for headaches, weakness or numbness. 10 point ROS negative except as marked above and in HPI. VITAL SIGNS: Within normal limits. GENERAL: No acute distress, non-toxic appearance. HEAD: Normal with no signs of head trauma. EYES: PERRLA, EOMI, conjunctiva normal, no discharge. EARS: Hearing grossly intact. NOSE: Normal. THROAT: Oropharynx is normal. NECK: Normal range of motion, no tenderness, supple, no lymphadenopathy, No adenopathy, no JVD. CHEST: Clear breath sounds bilaterally. No wheezes, rales, or rhonchi. CARDIAC: Regular rate and rhythm. S1 and S2, without murmurs, gallops, or rubs. VASCULAR: No Edema. Peripheral pulses normal and equal in all extremities. ABDOMEN: Normal and soft with no tenderness, no masses or pulsatile masses. GASTROINTESTINAL: Bowel sounds normal GENITOURINARY: Normal, No tenderness LYMPATHTIC: No lymphadenopathy noted. MUSCULOSKELETAL: Good range of motion of all major joints. Extremities without clubbing, cyanosis or edema. NEUROLOGICAL: Alert and oriented x 3. No focal sensory or strength deficits. Speech normal. Follows commands appropriately. PSYCHIATRIC: Normal Affect, judgement and mood. SKIN: Normal appearance with no rashes or lesions. TRAVEL OUTSIDE OF THE [place] IN LAST 30 DAYS: No - HPI Patient complains to provider of: Other - Exposure to STD Onset: Other Quality of pain: No pain Pain Level: Denies Sexual history: STD exposure Associated symptoms: None Exacerbated by: Denies Relieved by: Denies Similar symptoms previously: Yes Recently seen / treated by doctor: No - Related Data Allergies/Adverse Reactions: No Known Allergies Allergy (Verified 02/16/20 20:22) Past Medical History - General Information source: Patient - Social History Smoking Status: Current Every Day Smoker Cigarette use (# per day): Yes - 1/3 pack/day Smoking Education Provided: Yes - 4 minutes Frequency of alcohol use: None Drug Abuse: None Lives with: Spouse/Significant other Family History: Reviewed & Not Pertinent Patient has suicidal ideation: No Patient has homicidal ideation: No - na - Past Medical History Cardiac Medical History: Reports: None Pulmonary Medical History: Reports: Hx Asthma - childhood EENT Medical History: Reports: None Neurological Medical History: Reports: None Endocrine Medical History: Reports: None Renal/ Medical History: Reports: None Malignancy Medical History: Reports None GI Medical History: Reports: None Musculoskeletal Medical History: Reports None Skin Medical History: Reports None Psychiatric Medical History: Reports: None Traumatic Medical History: Reports: None Infectious Medical History: Reports: None Surgical Hx: Negative Past Surgical History: Reports: None - Immunizations Immunizations up to date: Yes Hx Diphtheria, Pertussis, Tetanus Vaccination: Yes - 2016 Physical Exam - Vital signs Vitals: Temp Pulse Resp BP Pulse Ox 98.6 F 103 H 16 145/81 H 99 02/16/20 19:53 02/16/20 19:53 02/16/20 19:53 02/16/20 19:53 02/16/20 19:53 Course - Re-evaluation Re-evalutation: 02/16/20 21:24 Patient has been treated with Rocephin and azithromycin due to STD exposure. His significant other is positive for chlamydia. - Vital Signs Vital signs: Temp Pulse Resp BP Pulse Ox 98.6 F 103 H 16 145/81 H 99 02/16/20 19:53 02/16/20 19:53 02/16/20 19:53 02/16/20 19:53 02/16/20 19:53 - Laboratory Laboratory results interpreted by me: 02/16/20 20:30 Urine Urobilinogen 4.0 H Discharge - Discharge Clinical Impression: STD exposure Condition: Stable Disposition: HOME, SELF-CARE Additional Instructions: You have been been treated for chlamydia due to the fact that she states your girlfriend was positive. State you are not having any symptoms Azithromycin Azithromycin (Zithromax) is a broad spectrum antibiotic in the same class as erythromycin. It can treat a variety of bacterial infections, but is most frequently used for respiratory infections. Azithromycin is extremely long-lasting. It accumulates in body tissues and continues to kill bacteria for many days. In order to improve absorption, Azithromycin should be taken at least one hour before or two hours after a meal. It does not have the same strong tendency to upset the stomach as erythromycin and is usually very well tolerated. Patients who have had a rash or other true allergic reactions to erythromycin should not take this medication. Call if you develop gastrointestinal distress, severe diarrhea, rash, hives, itching, or shortness of breath. Rocephin You have been given an injection of an antibiotic called Rocephin (ceftriaxone). Sometimes the injection must be combined with antibiotic pills. For some infections, such as an uncomplicated ear infection, Rocephin provides all the antibiotic that's needed. The antibiotic will be in your body for about two days. For serious infections, we usually repeat doses of Rocephin daily. Side effects are very unusual following a shot. Women may develop vaginal yeast infections, and babies can get yeast (thrush) in the mouth following the use of antibiotics. Contact your physician if you have symptoms with this medication. Allergy to this antibiotic can result in hives, wheezing, faintness, or itching. If symptoms of allergy occur, call the doctor at once. Acetaminophen Acetaminophen may be taken for pain relief or fever control. It's much safer than aspirin, offering a wider range of "safe" dosages. It is safe during . Some brand names are Tylenol, Panadol, Datril, Anacin 3, Tempra, and Liquiprin. Acetaminophen can be repeated every four hours. The following are maximum recommended dosages: WEIGHT Dose Drops Elixir Chew able(80mg) (LBS.) drprs=droppers tsp=teaspoon 6 40 mg .4 ml (1/2) 6-11 80 mg .8 ml (full) 1/2 tsp 1 tab 12-16 120 mg 1 1/2 drprs 3/4 tsp 1 1/2 tabs 17-23 160 mg 2 drprs 1 tsp 2 tabs 24-30 240 mg 3 drprs 1 1/2 tsp 3 tabs 30-35 320 mg 2 tsp 4 tabs 36-41 360 mg 2 1/4 tsp 4 1/2 tabs 42-47 400 mg 2 1/2 tsp 5 tabs 48-53 480 mg 3 tsp 6 tabs 54-59 520 mg 3 1/4 tsp 6 1/2 tabs 60-64 560 mg 3 1/2 tsp 7 tabs 65-70 600 mg 3 3/4 tsp 7 1/2 tabs 71-76 640 mg 4 tsp 8 tabs 77-82 720 mg 4 1/2 tsp 9 tabs 83-88 800 mg 5 tsp 10 tabs >89 pounds or adults 650 mg to 900 mg Acetaminophen can be repeated every four hours. Maximum daily dose not to exceed 4000 mg. These maximum recommended dosages are slightly higher than the dosages written on the product container, but these dosages are very safe and well below the toxic dosage for acetaminophen. FOLLOW-UP CARE: If you have been referred to a physician for follow-up care, call the physicians office for an appointment as you were instructed or within the next two days. If you experience worsening or a significant change in your symptoms, notify the physician immediately or return to the Emergency Department at any time for re-evaluation. Referrals: [facility] [Primary Care Provider] - Follow up as needed
[2020-02-16 20:46] LABS: APPEARANCE,URINE CLEAR; BILIRUBIN,URINE NEGATIVE (NEGATIVE); COLOR,URINE YELLOW; GLUCOSE, URINE NEGATIVE (NEGATIVE); KETONES,URINE NEGATIVE (NEGATIVE); LEUKOCYTE ESTERASE,URINE NEGATIVE (NEGATIVE); NITRITE,URINE NEGATIVE (NEGATIVE); PROTEIN,URINE NEGATIVE (NEGATIVE); URINE SPECIFIC GRAVITY 1.029
[2020-02-16 22:15] LABS: CHLAM PCR NOT DETECTED (NOT DETECT)
== END 2020-02-16 21:29 | disposition home or self-care (01) ==
LOC: ER 19:49
DX: Z20.2 Contact with and (suspected) exposure to infections with a predominantly sexual mode of transmission (principal)
CPT/HCPCS: 99284; 96372; 81001; 87491; 87591; J3490; J0696